=== PATIENT | female | born 1945 | race Two or more races ===

== ENCOUNTER 2024-08-06 16:00 | Emergency (ER) | payer OTHER ==
[~2024-08-06] VITALS: Ht 157.5 cm; Wt 63.5 kg
[2024-08-06] MEDS ORDERED: TOPROL XL200 MG (16:32)
[2024-08-06] MEDS ORDERED: SYNTHROID125 MCG PO (16:33)
[2024-08-06 17:13] LABS: HEMATOCRIT 44.6 % (36.0-45.00); HEMOGLOBIN 15.5 g/dL (12.0-15.00); MEAN CELL VOLUME 84.9 fL (80.00-100.00); MEAN CORPUSCULAR HEMOGLOBIN 29.5 pg (27.00-32.0); MEAN CORPUSCULAR HGB CONC 34.7 g/dl (32.0-36.0); PLATELET COUNT 277 K/uL (150-450); RED BLOOD COUNT 5.26 M/uL (4.00-6.00)
[2024-08-06 17:53] LABS: ALBUMIN 4.1 gm/dL (3.4-5.0); BILIRUBIN TOTAL 1.2 mg/dL (0.3-1.2); CALCIUM 9.8 mg/dL (8.5-10.1); CREATININE SERUM 0.92 mg/dL (0.55-1.02); GFR 58.89; GLOBULINA 3.1 G/DL (2.4-3.5); POTASSIUM 4.41 mEq/L (3.5-5.1); TOTAL PROTEIN 7.2 gm/dL (6.4-8.2)
== END 2024-08-06 18:32 | disposition home or self-care (01) ==
LOC: ER 16:03
PROVIDERS: General Practice
DX: I10 Essential (primary) hypertension (principal)